=== PATIENT | male | born 1985 | race Caucasian/White ===

== ENCOUNTER 2020-08-01 07:08 | Emergency (ER) | payer OTHER ==
[~2020-08-01] VITALS: Ht 165.1 cm; Wt 54.4 kg
--- NOTE | 2020-08-01 07:39 | NUR ---
Patient discharged to home in stable condition with brisk steady gait. Written and verbal after care instructions given. Patient verbalizes understanding and compliance of instructions. Stressed follow up with a dentist or return to ER for worsening s/s.
== END 2020-08-01 07:41 | disposition home or self-care (01) ==
LOC: ER 07:08
DX: K08.89 Other specified disorders of teeth and supporting structures (principal); M54.42 Lumbago with sciatica, left side
CPT/HCPCS: A4663